=== PATIENT | male | born 1965 | race African-American/Black ===

== ENCOUNTER 2025-03-02 09:02 | Emergency (ER) | payer OTHER, BC ==
[~2025-03-02 09:02] MED LIST: Iopamidol 370 76% 100 ML VIAL ONE
[2025-03-02 09:25] LABS: INR-International Normal Ratio 1.0; PTT 26.5 sec (22.9-36.1); Prothrombin Time 13.5 sec (12.0-14.7)
[2025-03-02 09:26] LABS: Red Blood Cell (RBC) Count 5.54 mill/uL (4.70-6.10); White Blood Cell (WBC) Count 6.9 10x3/uL (4.8-10.8)
[2025-03-02 09:27] LABS: Hematocrit 45.5 % (42.0-52.0); Hemoglobin 14.8 g/dL (14.0-18.0); MDiff Complete? YES; Manual Diff?? YES; Mean Corpuscular Hemoglobin 25.8 pg (27.0-31.0); Mean Corpuscular Volume 82.1 fl (78.0-98.0); Platelet Count 149 10x3/uL (130-400)
[2025-03-02 09:28] LABS: Platelet Adequacy Comment Platelets Normal
[2025-03-02 09:33] LABS: ALT (SGPT) 46 U/L (Less than 45); AST (SGOT) 44 U/L (11-34); Albumin 3.3 g/dL (3.1-4.5); Alkaline Phosphatase 68 U/L (40-110); Anion Gap 13 mmol/L (10-20); BUN (Urea Nitrogen) 14 mg/dL (8.4-25.7); Bilirubin, Total 0.6 mg/dL (0.3-1.2); Calc. Creatinine Clearance 0 mL/min (70-130); Calcium 8.7 mg/dL (7.8-10.44); Carbon Dioxide 23 mmol/L (22-29); Chloride 102 mmol/L (98-107); Globulin 3.6 g/dL (2.4-3.5); Glucose 243 mg/dL (70-105); Lipase 14 U/L (8-78); Potassium 3.9 mmol/L (3.5-5.1); Sodium 134 mmol/L (136-145)
[2025-03-02] MEDS ORDERED: Ondansetron PF 4 MG/2 ML Vial ONE (10:45)
[2025-03-02 11:31] LABS: Glucose, Urine (Dipstick) 100 mg/dL (Negative); Leukocyte Negative (Negative); Protein, Urine (Dipstick) Negative (Neg-Trace); Specific Gravity, Urine Less/Equal 1.005 (1.005-1.030)
[2025-03-02 11:38] LABS: Cocaine Metabolite Screen Negative (Negative); THC/Cannabinoid Screen Negative (Negative); Tricyclic Screen Negative (Negative)
== END 2025-03-02 12:17 | disposition home or self-care (01) ==
LOC: NAV ERS 09:02
DX: S30.0XXA Contusion of lower back and pelvis, initial encounter (principal); R79.89 Other specified abnormal findings of blood chemistry; E11.9 Type 2 diabetes mellitus without complications; I10 Essential (primary) hypertension; Z86.73 Personal history of transient ischemic attack (TIA), and cerebral infarction without residual deficits; V59.49XA Driver of pick-up truck or van injured in collision with other motor vehicles in traffic accident, initial encounter
CPT/HCPCS: 71045; 72170; 72220; 74177; 80053; 80306; 80307; 81001; 83605; 83690; 94760; 96374; 96375; J2270; J2405; J7030; Q9967